=== PATIENT | female | born 1990 | race Caucasian/White ===

== ENCOUNTER 2019-08-12 10:57 | Observation (INO) | payer OTHER ==
[2019-08-12] MEDS ORDERED: ONDANSETRON 4 MG/2 ML VIAL IVP STA (11:32)
[2019-08-12] MEDS ORDERED: MORPHINE SULFATE 4 MG/ML SYRINGE IV STA (11:32)
[2019-08-12] MEDS ORDERED: SODIUM CHLORIDE 0.9% 1,000 ML IV STA (11:32)
--- NOTE | 2019-08-12 11:50 | ED ---
Abdominal Pain HPI - General Chief Complaint: Abdominal Pain Stated Complaint: Abd/back Pain Time Seen by Provider: 08/12/19 11:17 Source: patient, RN notes reviewed Mode of arrival: ambulatory Limitations: no limitations - History of Present Illness Initial Comments: This a 28-year-old female presents emergency Department chief complaint right lower quadrant abdominal pain. Patient states pain has been increasing last couple days. Patient admits to some nausea no vomiting no diarrhea no constipation. She has no prior abdominal surgeries denies any chance of . No complaints of fevers or chills. She has no complaints of dysuria hematuria. Patient states pain does not radiate to her back. Patient offers no other complaints. - Related Data Allergies Allergy/AdvReac Type Severity Reaction Status Date / Time Macrolide Antibiotics Allergy Anaphylaxis Verified 08/12/19 11:14 Review of Systems ROS Statement: Those systems with pertinent positive or pertinent negative responses have been documented in the HPI. ROS Other: All systems not noted in ROS Statement are negative. Past Medical History Past Medical History: No Reported History History of Any Multi-Drug Resistant Organisms: None Reported Past Surgical History: Adenoidectomy, Tonsillectomy Past Psychological History: No Psychological Hx Reported Smoking Status: Current every day smoker Past Alcohol Use History: None Reported Past Drug Use History: None Reported General Exam Limitations: no limitations General appearance: alert, in no apparent distress Head exam: Present: atraumatic, normocephalic, normal inspection Respiratory exam: Present: normal lung sounds bilaterally. Absent: respiratory distress, wheezes, rales, rhonchi, stridor Cardiovascular Exam: Present: regular rate, normal rhythm, normal heart sounds. Absent: systolic murmur, diastolic murmur, rubs, gallop, clicks GI/Abdominal exam: Present: soft, tenderness (moderate right lower quadrant tenderness), normal bowel sounds. Absent: distended, guarding, rebound, rigid Back exam: Absent: CVA tenderness (R), CVA tenderness (L) Neurological exam: Present: alert, oriented X3 Skin exam: Present: warm, dry, intact, normal color. Absent: rash Course Vital Signs 08/12/19 11:11 Temperature 98.2 F Pulse Rate 102 H Respiratory 18 Rate Blood Pressure 111/71 O2 Sat by Pulse 99 Oximetry Medical Decision Making - Medical Decision Making CT shows evidence of acute appendicitis with appendicolith. Patient has mild leukocytosis. There is no evidence perforation. Patient was started on Zosyn. Patient had IV fluids. Patient be admitted to Dr. Willis - Lab Data Result diagrams: 08/12/19 11:50 08/12/19 11:50 Lab Results 08/12/19 08/12/19 08/12/19 Range/Units 11:32 11:32 11:50 WBC 17.3 H (3.8-10.6) k/uL RBC 4.15 (3.80-5.40) m/uL Hgb 12.8 (11.4-16.0) gm/dL Hct 39.3 (34.0-46.0) % MCV 94.8 (80.0-100.0) fL MCH 30.9 (25.0-35.0) pg MCHC 32.6 (31.0-37.0) g/dL RDW 11.8 (11.5-15.5) % Plt Count 178 (150-450) k/uL Neutrophils % 91 % Lymphocytes % 5 % Monocytes % 2 % Eosinophils % 1 % Basophils % 0 % Neutrophils # 15.7 H (1.3-7.7) k/uL Lymphocytes # 0.9 L (1.0-4.8) k/uL Monocytes # 0.4 (0-1.0) k/uL Eosinophils # 0.2 (0-0.7) k/uL Basophils # 0.0 (0-0.2) k/uL Sodium (137-145) mmol/L Potassium (3.5-5.1) mmol/L Chloride (98-107) mmol/L Carbon Dioxide (22-30) mmol/L Anion Gap mmol/L BUN (7-17) mg/dL Creatinine (0.52-1.04) mg/dL Est GFR (CKD-EPI)AfAm (>60 ml/min/1.73 sqM) Est GFR (CKD-EPI)NonAf (>60 ml/min/1.73 sqM) Glucose (74-99) mg/dL Calcium (8.4-10.2) mg/dL Total Bilirubin (0.2-1.3) mg/dL AST (14-36) U/L ALT (4-34) U/L Alkaline Phosphatase (38-126) U/L Total Protein (6.3-8.2) g/dL Albumin (3.5-5.0) g/dL Amylase (30-110) U/L Lipase (23-300) U/L Urine Color Yellow Urine Appearance Clear (Clear) Urine pH 6.5 (5.0-8.0) Ur Specific [place] 1.018 (1.001-1.035) Urine Protein Negative (Negative) Urine Glucose (UA) Negative (Negative) Urine Ketones Trace H (Negative) Urine Blood Negative (Negative) Urine Nitrite Negative (Negative) Urine Bilirubin Negative (Negative) Urine Urobilinogen <2.0 (<2.0) mg/dL Ur Leukocyte Esterase Negative (Negative) Urine HCG, Qual Not Detected (Not Detectd) 08/12/19 Range/Units 11:50 WBC (3.8-10.6) k/uL RBC (3.80-5.40) m/uL Hgb (11.4-16.0) gm/dL Hct (34.0-46.0) % MCV (80.0-100.0) fL MCH (25.0-35.0) pg MCHC (31.0-37.0) g/dL RDW (11.5-15.5) % Plt Count (150-450) k/uL Neutrophils % % Lymphocytes % % Monocytes % % Eosinophils % % Basophils % % Neutrophils # (1.3-7.7) k/uL Lymphocytes # (1.0-4.8) k/uL Monocytes # (0-1.0) k/uL Eosinophils # (0-0.7) k/uL Basophils # (0-0.2) k/uL Sodium 135 L (137-145) mmol/L Potassium 3.9 (3.5-5.1) mmol/L Chloride 105 (98-107) mmol/L Carbon Dioxide 24 (22-30) mmol/L Anion Gap 6 mmol/L BUN 8 (7-17) mg/dL Creatinine 0.56 (0.52-1.04) mg/dL Est GFR (CKD-EPI)AfAm >90 (>60 ml/min/1.73 sqM) Est GFR (CKD-EPI)NonAf >90 (>60 ml/min/1.73 sqM) Glucose 105 H (74-99) mg/dL Calcium 9.1 (8.4-10.2) mg/dL Total Bilirubin 0.6 (0.2-1.3) mg/dL AST 16 (14-36) U/L ALT 15 (4-34) U/L Alkaline Phosphatase 67 (38-126) U/L Total Protein 7.3 (6.3-8.2) g/dL Albumin 4.3 (3.5-5.0) g/dL Amylase 32 (30-110) U/L Lipase 26 (23-300) U/L Urine Color Urine Appearance (Clear) Urine pH (5.0-8.0) Ur Specific [place] (1.001-1.035) Urine Protein (Negative) Urine Glucose (UA) (Negative) Urine Ketones (Negative) Urine Blood (Negative) Urine Nitrite (Negative) Urine Bilirubin (Negative) Urine Urobilinogen (<2.0) mg/dL Ur Leukocyte Esterase (Negative) Urine HCG, Qual (Not Detectd) Disposition Clinical Impression: Acute appendicitis Disposition: ADMITTED IP TO THIS [facility] Referrals: Андрей Mcdaniel MD [Primary Care Provider] - 1-2 days
[2019-08-12 11:57] LABS: Appearance,Urine Clear (Clear); Bilirubin,Urine Negative (Negative); Blood,Urine Negative (Negative); Color,Urine Yellow; Glucose,Urine (UA) Negative (Negative); Ketones,Urine Trace (Negative); Leukocyte Esterase,Urine Negative (Negative); Nitrite,Urine Negative (Negative); PH, Urine 6.5 (5.0-8.0); Protein,Urine Negative (Negative); Specific Gravity,Urine 1.018 (1.001-1.035); Urobilinogen,Urine <2.0 mg/dL (<2.0)
[2019-08-12 12:07] LABS: Basophils % (A) 0 %; Eosinophils # (A) 0.2 k/uL (0-0.7); Eosinophils % (A) 1 %; HCT 39.3 % (34.0-46.0); HGB 12.8 gm/dL (11.4-16.0); Lymphocytes # (A) 0.9 k/uL (1.0-4.8); Lymphocytes % (A) 5 %; MCH 30.9 pg (25.0-35.0); MCHC 32.6 g/dL (31.0-37.0); MCV 94.8 fL (80.0-100.0); Mean Platelet Volume 7.8; Monocytes # (A) 0.4 k/uL (0-1.0); Monocytes % (A) 2 %; Neutrophils # (A) 15.7 k/uL (1.3-7.7); Neutrophils % (A) 91 %; Platelet Count 178 k/uL (150-450); RBC 4.15 m/uL (3.80-5.40); RDW 11.8 % (11.5-15.5); WBC 17.3 k/uL (3.8-10.6)
[2019-08-12 12:32] LABS: ALT 15 U/L (4-34); AST 16 U/L (14-36); African American GFR (CKD) >90 (>60 ml/min/1.73 sqM); Albumin 4.3 g/dL (3.5-5.0); Alkaline Phosphatase 67 U/L (38-126); Amylase 32 U/L (30-110); Anion Gap 6 mmol/L; Blood Urea Nitrogen 8 mg/dL (7-17); Calcium 9.1 mg/dL (8.4-10.2); Carbon Dioxide 24 mmol/L (22-30); Chloride 105 mmol/L (98-107); Glucose 105 mg/dL (74-99); Non-African American GFR(CKD) >90 (>60 ml/min/1.73 sqM); Potassium 3.9 mmol/L (3.5-5.1); Sodium 135 mmol/L (137-145); Total Bilirubin 0.6 mg/dL (0.2-1.3); Total Protein 7.3 g/dL (6.3-8.2)
--- NOTE | 2019-08-12 13:02 | CT ---
EXAMINATION TYPE: CT abdomen pelvis w con DATE OF EXAM: 08/12/2019 COMPARISON: NONE HISTORY: 28-year-old female RLQ pain TECHNIQUE: Contiguous axial scanning of the abdomen and pelvis following administration of 100 ml Iso gregg 300 IV contrast. Delayed images through the kidneys and coronal/sagittal reconstructions perform ed. CT DLP: 1065 mGycm Automated exposure control for dose reduction was used. FINDINGS: Heart normal size without pericardial effusion. Lung bases clear without pleural effusion. No focal liver lesion or biliary ductal dilatation. Portal venous system is patent. Gallbladder, adrenal glands, kidneys, spleen with anterior splenule, and pancreas appear within ludmila l limits. Fluid-filled small bowel loops throughout the mid and lower abdomen. Small bowel loops are distended up to 2.8 cm. Appendix is inflamed, thickened, and fluid distended to 1.3 cm. Mild to moderate perinephric edema. N o abscess formation. Small 5 mm appendicolith at the base of the appendix. Scattered mild stool. Bladder partially distended. Uterus anteverted. Mild to moderate cul-de-sac free fluid. Both ovaries are visualized. No abdominal or pelvic lymphadenopathy seen. Bones: No osseous destructive process. IMPRESSION: 1. EXAM POSITIVE FOR ACUTE APPENDICITIS WITH MODERATE SURROUNDING INFLAMMATION. NO ABSCESS OR FREE AI R. 5 MM APPENDICOLITH. 2. MILD TO MODERATE CUL-DE-SAC FREE FLUID COULD BE PHYSIOLOGIC OR COULD BE REACTIVE TO THE APPENDICEA L INFLAMMATION. 3. FLUID-FILLED SMALL BOWEL LOOPS AND SOME BORDERLINE DISTENDED LOOPS SUGGESTS A SECONDARY SMALL ANGEL L ILEUS.
[2019-08-12] MEDS ORDERED: PIPERACILLIN-TAZOBACTAM 3.375 GM in SODIUM CHLORIDE 0.9% 100 ML IVPB STA (13:13)
[2019-08-12] MEDS ORDERED: NALOXONE 0.4 MG/ML 1 ML VIAL IV PRN (13:17)
[2019-08-12] MEDS ORDERED: ONDANSETRON 4 MG/2 ML VIAL IVP PRN (13:17)
[2019-08-12] MEDS: SODIUM CHLORIDE 0.9% 1,000 ML IV SCH ×2 (13:56→20:08)
[2019-08-12] MEDS: MORPHINE SULFATE 4 MG/ML SYRINGE IV PRN ×2 (15:25→22:24)
[2019-08-12] MEDS ORDERED: ONDANSETRON 4 MG/2 ML VIAL ONE (16:37)
[2019-08-12] MEDS ORDERED: IV FLUID CONTINUATION 1,000 ML IV ONE (17:00)
[2019-08-12] MEDS ORDERED: GLYCOPYRROLATE 0.2 MG/ML 2 ML VIAL ONE (17:09)
[2019-08-12] MEDS ORDERED: fentaNYL (PF) 50 MCG/ML 2 ML AMP ONE (17:09)
[2019-08-12] MEDS ORDERED: PROPOFOL 10 MG/ML 20 ML VIAL IV ONE (17:09)
[2019-08-12] MEDS ORDERED: ROCURONIUM BROMIDE 10 MG/ML 5 ML VIAL IV ONE (17:09)
[2019-08-12] MEDS ORDERED: LIDOCAINE 1% INJ 10MG/ML (20 ML MDV) ONE (17:09)
[2019-08-12] MEDS ORDERED: MIDAZOLAM 2 MG/2 ML VIAL ONE (17:09)
[2019-08-12] MEDS ORDERED: SUCCINYLCHOLINE CHLORIDE 100 MG/5 ML SYR IV ONE (17:09)
[2019-08-12] MEDS ORDERED: KETOROLAC 30 MG/ML 1 ML VIAL ONE (17:09)
[2019-08-12] MEDS ORDERED: NEOSTIGMINE 1 MG/ML 10 ML VIAL ONE (17:09)
[2019-08-12] MEDS ORDERED: DEXAMETHASONE SOD PHOSPHATE 10 MG/ML 1 ML VIAL IV ONE (17:10)
--- NOTE | 2019-08-12 17:12 | P.GSHP ---
History of Present Illness H&P Date: 08/12/19 CHIEF COMPLAINT: Right lower quadrant abdominal pain with appendicitis for over 3 days. HISTORY OF PRESENT ILLNESS: The patient is a previously healthy 28-year-old female who presents with over 3 day history of periumbilical with right lower quadrant abdominal pain that is crampy dull ache in nature. No reports of prior abdominal pain. She states the intensity of the pain is moderate. No fevers or chills. Her presented with CT abdomen and pelvis consistent with dilated appendix suspicious for appendicitis hence general surgery admission. PAST MEDICAL HISTORY: See list. Reviewed. PAST SURGICAL HISTORY: See list. Reviewed. CURRENT MEDICATIONS: See list. Reviewed. ALLERGIES: See list. Reviewed. SOCIAL HISTORY: See list. Reviewed. FAMILY HISTORY: No Crohns disease and ulcerative colitis. REVIEW OF ORGAN SYSTEMS: CONSTITUTIONAL: Present fever, no chills. Denies recent weight loss. HEENT: Denies any trouble with vision, hearing or nosebleeds. No difficulty swallowing. LYMPHATIC: The patient denies any lumps and bumps around the neck. ENDOCRINE: Denies any thyroid disorders. Denies any blood sugar glucose intolerance. RESPIRATORY: Denies shortness of breath including chronic cough. CARDIOVASCULAR: Denies history of chest pain with exertion. GASTROINTESTINAL: Denies regurgitation of bile at night as well as intermittent nausea. No blood in stools. GENITOURINARY: Denies any blood in urine or increased urinary frequency. ` MUSCULOSKELETAL: Denies current joint arthritis. NEUROLOGIC: Denies any numbness or tingling along the distal extremities. No seizure disorders or headaches. PSYCHIATRIC: Denies any depression or suicidal ideation. HEMATOLOGIC: Denies any abnormal bleeding or bruising. PHYSICAL EXAMINATION: VITALS: Reviewed GENERAL: A 28-year-old female in no acute distress. Pleasant. HEENT: No sclera icterus. Extraocular movements grossly intact. Moist buccal mucosa. Head is atraumatic, normocephalic. Hears conversational speech. No nasal drainage. NECK: Supple without lymphadenopathy. No JV distention. CHEST: Non-labored respirations and equal bilateral excursions. CARDIOVASCULAR: Regular rate and rhythm. Palpable 2+ radial pulses. ABDOMEN: Soft, tender at the right lower quadrant without guarding. MUSCULOSKELETAL: No clubbing, cyanosis or edema. NEUROLOGIC: No focal or lateralizing signs. PSYCH: Appropriate affect. Alert and oriented to person, place and time. SKIN: Well perfused. Good skin turgor. LABS: Reviewed. White blood cell count elevated over 16,000. STUDIES: CT of the abdomen and pelvis reviewed with findings consistent with appendicitis. ASSESSMENT: 1. Right lower quadrant pain. 2. Appendicitis with sepsis 3. Leukocytosis. PLAN: 1. I have discussed benefits and risks of robotic appendectomy. 2. Bilateral SCDs. 3. Antibiotics intravenous to address moderate leukocytosis with underlying sepsis Thank you very much for allowing me to participate in the care of your patient. Past Medical History Past Medical History: No Reported History Additional Past Medical History / Comment(s): Tonisllitis History of Any Multi-Drug Resistant Organisms: None Reported Past Surgical History: Adenoidectomy, Tonsillectomy Past Anesthesia/Blood Transfusion Reactions: No Reported Reaction Smoking Status: Current every day smoker - Past Family History Mother Family Medical History: Cancer Additional Family Medical History / Comment(s): bladder cancer Medications and Allergies Home Medications Medication Instructions Recorded Confirmed Type Docusate [Colace] 100 mg PO ONCE 08/12/19 08/12/19 History Allergies Allergy/AdvReac Type Severity Reaction Status Date / Time Macrolide Antibiotics Allergy Anaphylaxis Verified 08/12/19 13:23 Surgical - Exam Vital Signs Temp Pulse Resp BP Pulse Ox 98.2 F 102 H 18 111/71 99 08/12/19 11:11 08/12/19 11:11 08/12/19 11:11 08/12/19 11:11 08/12/19 11:11 Results - Labs 08/12/19 11:50 08/12/19 11:50 Abnormal Lab Results - Last 24 Hours (Table) 08/12/19 08/12/19 08/12/19 Range/Units 11:32 11:50 11:50 WBC 17.3 H (3.8-10.6) k/uL Neutrophils # 15.7 H (1.3-7.7) k/uL Lymphocytes # 0.9 L (1.0-4.8) k/uL Sodium 135 L (137-145) mmol/L Glucose 105 H (74-99) mg/dL Urine Ketones Trace H (Negative) Diabetes panel 08/12/19 Range/Units 11:50 Sodium 135 L (137-145) mmol/L Potassium 3.9 (3.5-5.1) mmol/L Chloride 105 (98-107) mmol/L Carbon Dioxide 24 (22-30) mmol/L BUN 8 (7-17) mg/dL Creatinine 0.56 (0.52-1.04) mg/dL Glucose 105 H (74-99) mg/dL Calcium 9.1 (8.4-10.2) mg/dL AST 16 (14-36) U/L ALT 15 (4-34) U/L Alkaline Phosphatase 67 (38-126) U/L Total Protein 7.3 (6.3-8.2) g/dL Albumin 4.3 (3.5-5.0) g/dL Calcium panel 08/12/19 Range/Units 11:50 Calcium 9.1 (8.4-10.2) mg/dL Albumin 4.3 (3.5-5.0) g/dL Pituitary panel 08/12/19 Range/Units 11:50 Sodium 135 L (137-145) mmol/L Potassium 3.9 (3.5-5.1) mmol/L Chloride 105 (98-107) mmol/L Carbon Dioxide 24 (22-30) mmol/L BUN 8 (7-17) mg/dL Creatinine 0.56 (0.52-1.04) mg/dL Glucose 105 H (74-99) mg/dL Calcium 9.1 (8.4-10.2) mg/dL Adrenal panel 08/12/19 Range/Units 11:50 Sodium 135 L (137-145) mmol/L Potassium 3.9 (3.5-5.1) mmol/L Chloride 105 (98-107) mmol/L Carbon Dioxide 24 (22-30) mmol/L BUN 8 (7-17) mg/dL Creatinine 0.56 (0.52-1.04) mg/dL Glucose 105 H (74-99) mg/dL Calcium 9.1 (8.4-10.2) mg/dL Total Bilirubin 0.6 (0.2-1.3) mg/dL AST 16 (14-36) U/L ALT 15 (4-34) U/L Alkaline Phosphatase 67 (38-126) U/L Total Protein 7.3 (6.3-8.2) g/dL Albumin 4.3 (3.5-5.0) g/dL
[2019-08-12] MEDS ORDERED: HEPARIN SODIUM,PORCINE 5,000 UNIT/ML 1 ML VIAL SQ ONE (17:14)
[2019-08-12] MEDS ORDERED: BUPIVACAIN-EPI 0.25%-1:200,000 30 ML VIAL SQ ONE ×2 (17:34→17:50)
[2019-08-12] MEDS ORDERED: HYDROmorphone 1 MG/ML 1 ML SYRINGE IVP ONE (18:19)
[2019-08-12] MEDS ORDERED: HYDROcodone/APAP 5-325MG 1 EACH TAB PO PRN (18:26)
[2019-08-12] MEDS: ACETAMINOPHEN IV (For NPO) 1,000 MG in EMPTY BAG 1 BAG IVPB ONE ×2 (18:30→18:45)
[2019-08-12] MEDS: HEPARIN SODIUM,PORCINE 5,000 UNIT/ML 1 ML VIAL SQ SCH (21:13)
[2019-08-12] MEDS: KETOROLAC 30 MG/ML 1 ML VIAL IVP SCH (21:14)
[2019-08-12] MEDS: PIPERACILLIN-TAZOBACTAM 3.375 GM in SODIUM CHLORIDE 0.9% 100 ML IVPB SCH (22:19)
--- NOTE | 2019-08-12 23:02 | P.OP ---
Date of Procedure: 08/12/19 Description of Procedure: SURGEON: ERIKA WILLIS MD Preoperative Diagnosis: 1. Right lower quadrant abdominal pain 2. Acute appendicitis 3. Tobacco use Postoperative Diagnosis: 1. Right lower quadrant abdominal pain 2. Acute appendicitis 3. Tobacco use Procedure(s) Performed: 1. Robotic-assisted daVinci Xi laparoscopic appendectomy with omentectomy Anesthesia: GETA, local Surgeon: Erika Willis Estimated Blood Loss (ml): 5 Pathology: other (appendix) Condition: stable Disposition: floor Operative Findings: 1. Acute appendicitis without rupture with mild periappendicitis. 2. Terminal ileum unremarkable 3. Cecum unremarkable 4. No bilateral inguinal hernias 5. Omentum entangled in right hemipelvis and at appendix, non ruptured and dilated 6. Uncomplicated appendectomy 7. Right ovary unremarkable INDICATIONS: The patient is a 28-year-old female with three-day history of right lower quadrant abdominal pain. Diagnostic studies confirmed appendicitis. Benefits and risks, including infection, open surgery, and bleeding for additional surgery was discussed at length. Informed consent was obtained. All questions of the patient and family were answered. DESCRIPTION: The patient was transferred to the operating room and placed in supine position. The patient had previously voided. The abdomen was then prepped and draped in standard sterile fashion as Ioban was placed along the abdomen to minimize any contamination of skin floor. After a timeout protocol was performed, attention was then brought to the left upper quadrant whereby a 0 degree 5 mm laparoscopic trocar entry was performed. The abdominal cavity was entered and insufflated to 12 mmHg pressure, which was tolerated well. Diagnostic laparoscopy demonstrated no injury to bowel, viscera or mesentery. The appendix was adherent to the right lower quadrant abdominal wall. Next a robotic 8-mm trocar was placed along the left lower quadrant, 10-cm lateral to the midline. A 12 mm port was placed along the left upper quadrant and another 8-mm port left lateral abdominal wall. Ports were placed 8 cm apart from each other including 15-20 cm away from the target anatomy of the right pelvis. The patient was then placed in Trendelenburg position, at least 10 down and right side up at least 6. The robotic da David XI system was primed and docked from the left side of the patient. Using atraumatic graspers and vessel sealer, the robotic system was docked and primed as described. Instruments were interchanged by the logistics assistant including graspers, robotic stapler and vessel sealer. Next, attention was brought to identify the cecum. A systematic view within the abdominal cavity was started with the small bowel which was unremarkable. The base of the cecum was unremarkable. No inguinal hernias were identified. The right ovary was unremarkable. The right fallopian tube was unremarkable. The omentum was adherent to the body of the appendix including reach into the deep pelvis was integumental on the right ovary. No ischemia was identified along the right ovary. The tip appendix was dilated and inflamed. The body of the appendix was moderately dilated with moderate periappendicitis. The base of the appendix was also dilated. No perforation was identified. The appendix was dissected free from its surrounding tissues. Additionally, the omentum was resected at the appendix that had reached into the deep pelvis. A 45 mm blue robotic staple load as fired along the base of the appendix. The staple line was hemostatic. Hemostasis was checked prior to undocking the robot. The robot was undocked. I re-scrubbed into the case. The specimen was removed from the abdominal cavity with an Endo Catch bag through the 12 mm trocar at the left upper quadrant. The port site was closed with 0 Vicryl and Ramses Alejandro. All instruments and pneumoperitoneum were evacuated from the abdominal cavity. Local anesthetic was infiltrated to all wounds for postop analgesia. All incisions were also cleansed with diluted hydrogen peroxide. The incisions were closed with 4-0 Monocryl. Exofin glue was applied to the rest of the skin incisions. The patient had tolerated the procedure well. The patient was extubated successfully. The patient was transferred to the postanesthesia care unit in stable condition.
[2019-08-13] MEDS: KETOROLAC 30 MG/ML 1 ML VIAL IVP SCH ×3 (01:01→12:38)
[2019-08-13] MEDS: ONDANSETRON 4 MG/2 ML VIAL IVP SCH ×3 (01:03→12:38)
[2019-08-13] MEDS: ACETAMINOPHEN TAB 325 MG TAB PO SCH ×3 (01:03→12:37)
[2019-08-13] MEDS: SODIUM CHLORIDE 0.9% 1,000 ML IV SCH ×2 (04:44→12:38)
[2019-08-13 05:33] VITALS: BP 99/64; PULSE 70; RESP 16; TEMP 97.7
[2019-08-13 08:07] LABS: Basophils % (A) 0 %; Eosinophils # (A) 0.1 k/uL (0-0.7); Eosinophils % (A) 1 %; HCT 34.8 % (34.0-46.0); HGB 11.3 gm/dL (11.4-16.0); Lymphocytes % (A) 8 %; MCH 31.3 pg (25.0-35.0); MCHC 32.4 g/dL (31.0-37.0); MCV 96.5 fL (80.0-100.0); Mean Platelet Volume 8.4; Monocytes # (A) 0.3 k/uL (0-1.0); Monocytes % (A) 2 %; Neutrophils # (A) 11.2 k/uL (1.3-7.7); Neutrophils % (A) 89 %; Platelet Count 168 k/uL (150-450); RBC 3.61 m/uL (3.80-5.40); RDW 12.2 % (11.5-15.5); WBC 12.6 k/uL (3.8-10.6)
[2019-08-13] MEDS: PIPERACILLIN-TAZOBACTAM 3.375 GM in SODIUM CHLORIDE 0.9% 100 ML IVPB SCH (08:27)
[2019-08-13] MEDS: HEPARIN SODIUM,PORCINE 5,000 UNIT/ML 1 ML VIAL SQ SCH ×2 (08:28→08:34)
[2019-08-13] MEDS ORDERED: PANTOPRAZOLE 40 MG/10 ML VIAL IV SCH (09:00)
--- NOTE | 2019-08-13 12:07 | P.DS ---
<Rachel Delacruz - Last Filed: 08/13/19 12:05> Providers Expected date of discharge: 08/13/19 Hospital Course: 28-year-old female who presented to the hospital with a chief complaint of abdominal pain. Patient was found to have acute appendicitis. She underwent robotic appendectomy with Dr. Willis on 08/12/2019. Patient is doing well postoperatively without any immediate complications. Pain is controlled on oral medications. Tolerating diet without nausea or vomiting. Vital signs are stable. She is stable for discharge home today. Please see EMR for further hospital course details. Discharge diagnoses 1. Acute appendicitis Nurse practitioner note has been reviewed by physician. Signing provider agrees with the documented findings, assessment, and plan of care. Patient Condition at Discharge: Good Plan - Discharge Summary New Discharge Prescriptions: New Acetaminophen Tab [Tylenol Tab] 650 mg PO Q4H PRN #30 tablet PRN Reason: Pain Ibuprofen [Motrin] 600 mg PO Q8HR PRN #30 tab PRN Reason: Pain No Action Docusate [Colace] 100 mg PO ONCE Discharge Medication List Docusate [Colace] 100 mg PO ONCE 08/12/19 [History] Acetaminophen Tab [Tylenol Tab] 650 mg PO Q4H PRN #30 tablet 08/13/19 [Rx] Ibuprofen [Motrin] 600 mg PO Q8HR PRN #30 tab 08/13/19 [Rx] Follow up Appointment(s)/Referral(s): Андрей Mcdaniel MD [Primary Care Provider] - 1-2 days Erika Willis MD [STAFF PHYSICIAN] - 08/18/19 5:00 pm Patient Instructions/Handouts: Laparoscopic Appendectomy (DC) Activity/Diet/Wound Care/Special Instructions: Alternate Tylenol and Motrin for pain No lifting over 10 pounds You may shower. No soaking or tub baths Very light activity until you are reevaluated at your follow up appointment with your surgeon Soft diet as tolerated Discharge Disposition: HOME SELF-CARE <Erika Willis - Last Filed: 08/14/19 06:34> Providers Date of admission: 08/12/19 13:50 Attending physician: Erika Willis Primary care physician: Андрей Mcdaniel - Discharge Diagnosis(es) (1) Tobacco use Status: Acute (2) Acute appendicitis Status: Acute (3) Ileus Status: Acute Hospital Course: Patient seen and evaluated with nurse practitioner. Agree with above. Patient to follow-up in the office within 5-7 days. Discharge instructions including wound care and lifting restrictions for 2 weeks of 10 pounds also reviewed.
--- NOTE | 2019-08-17 08:45 | CDI ---
Documentation Clarification Form Date: 08/17/19 From: Josey Lim Phone: If you have a question about this query, please contact Nia Krishnamurthy, [employer] at [phone] between 8am and 5pm. Admit Date: 08/12/19 Discharge Date: 08/13/19 Patient Name: RACHAEL ROSE Visit Number: [id number] ATTENTION: The Clinical Documentation Specialists (CDI) and [facility] Coding Staff appreciate your assistance in clarifying documentation. Please respond to the clarification below the line at the bottom and electronically sign. The CDI & [facility] Coding staff will review the response and follow-up if needed. Please note: Queries are made part of the Legal Health Record. If you have any questions, please contact the author of this message via ITS. Dear Dr. Erika Willis, Conflicting documentation has been found in the medical record: Appendicitis with sepsis was documented in the H&P. Appendicitis was documented in the DS. History/Risk Factors: ileus, smoker Clinical Indicators: T-98.2, P-102, R-18, BP-94/62; WBC-17.3, Neutrophils-15.7, no lactic acid Treatment: Appendectomy, IV Zosyn, no antibiotics on discharge In your opinion, what is the most clinically appropriate diagnosis for this patient? Sepsis ruled in Sepsis ruled out Other explanation of clinical findings Unable to determine (no explanation for clinical findings) Sepsis ruled in Please see corrected discharge and op note to reflect appendicitis with sepsis. KM 08/18/19 @ 0716 AVERY
== END 2019-08-13 14:21 | disposition home or self-care (01) ==
LOC: EC 10:57 → INTOOBSV 13:50 → 5NMEDONC 13:50 → UNDODISIN 08-13 14:21
PROVIDERS: ADMIT Surgery Plastic and Reconstructive Surgery; ATTEND Surgery Plastic and Reconstructive Surgery
DX: K35.33 Acute appendicitis with perforation, localized peritonitis, and gangrene, with abscess (principal); A41.9 Sepsis, unspecified organism; K56.7 Ileus, unspecified; F17.210 Nicotine dependence, cigarettes, uncomplicated; Z03.818 Encounter for observation for suspected exposure to other biological agents ruled out; Z88.1 Allergy status to other antibiotic agents; Z90.89 Acquired absence of other organs; Z87.09 Personal history of other diseases of the respiratory system; Z80.52 Family history of malignant neoplasm of bladder
CPT/HCPCS: 44970; S2900; 36415; 74177; 80053; 81003; 81025; 82150; 83690; 85025; 88304; 96361; 96365; 96374; 96375; 96376; 99285

== ENCOUNTER → 2024-06-03 | Outpatient (CLI) | payer OTHER ==
[2024-06-03 18:07] LABS: Basophils # (A) 0.05 X 10*3/uL (0.00-0.10); Basophils % (A) 0.6 %; Eosinophils # (A) 0.04 X 10*3/uL (0.04-0.35); Eosinophils % (A) 0.5 %; HGB 13.6 g/dL (12.0-15.0); Lymphocytes % (A) 29.6 %; MCH 30.3 pg (27.0-32.0); MCHC 32.4 g/dL (32.0-37.0); MCV 93.5 FL (80.0-97.0); Mean Platelet Volume 9.5 FL (9.5-12.2); Monocytes # (A) 0.48 X 10*3/uL (0.20-1.00); Monocytes % (A) 6.2 %; NRBC Per 100 WBC 0 X 10*3/uL (0.00-0.01); Platelet Count 277 X 10*3/uL (140-440); RBC 4.49 X 10*6/uL (4.10-5.20); RDW 12.5 % (11.5-14.5); WBC 7.78 X 10*3/uL (4.50-10.00)
[2024-06-03 18:38] LABS: Chol/HDL Ratio 2.71 Ratio; VLDL Calculation 12.28 mg/dL (5.00-40.00)
== END | disposition home or self-care (01) ==
LOC: LABWHC1 12:00
PROVIDERS: ATTEND Obstetrics & Gynecology
DX: Z13.220 Encounter for screening for lipoid disorders (principal); Z13.29 Encounter for screening for other suspected endocrine disorder; E55.9 Vitamin D deficiency, unspecified; N92.0 Excessive and frequent menstruation with regular cycle
CPT/HCPCS: 36415; 80061; 82306; 84439; 84443; 85025